=== PATIENT | male | born 1980 | race Caucasian/White ===

== ENCOUNTER 2021-12-22 20:21 | Inpatient (IN) | payer MEDICAID ==
[~2021-12-22] VITALS: Ht 177.8 cm; Wt 81.2 kg
[2021-12-23] MEDS ORDERED: VANCOMYCIN 1G PREMIX 200 ML IV SCH (01:00)
[2021-12-23] MEDS ORDERED: PIPERACILLIN/TAZ 3.375G PREMIX 50 ML IV ONE (01:00)
[2021-12-23 01:01] LABS: MEAN CORPUSCULAR HEMOGLOBIN 28.3 pg (28.0-32.0); MEAN CORPUSCULAR VOLUME 84.7 fL (80.0-94.0); MEAN PLATELET VOLUME 7.2 fl (7.4-10.4); PLATELET 564 x1000/uL (130-400); RED CELL DISTRIBUTION WIDTH 13.7 % (11.6-14.6)
[2021-12-23 01:08] LABS: CHLORIDE 106 mEq/L (98-107)
[2021-12-23 02:42] LABS: PLATELET ESTIMATE INCREASED
[2021-12-23] MEDS ORDERED: SODIUM CHLORIDE 0.9% 1,000 ML IV ONE (03:00)
[2021-12-23 09:36] LABS: HEMATOCRIT. 36.8 % (42.0-52.0); HEMOGLOBIN. 12.4 g/dL (14.0-18.0); MEAN CORPUSCULAR HEMOGLOBIN 28.4 pg (28.0-32.0); MEAN CORPUSCULAR VOLUME 84.2 fL (80.0-94.0); MEAN PLATELET VOLUME 6.8 fl (7.4-10.4); PLATELET 507 x1000/uL (130-400); RED BLOOD CELL COUNT 4.38 mill/uL (4.7-6.1); RED CELL DISTRIBUTION WIDTH 13.9 % (11.6-14.6)
[2021-12-23] MEDS ORDERED: NALOXONE HCL 0.4MG/ML VIAL IV PRN (09:45)
[2021-12-23 09:49] LABS: CHLORIDE 105 mEq/L (98-107)
[2021-12-23] MEDS: LORAZEPAM 2MG/ML CPJ IV PRN ×4 (10:15→22:05)
[2021-12-23] MEDS: VANCOMYCIN 1.25GM PMX (XELLIA) 250 ML IV SCH ×2 (10:55→17:04)
[2021-12-23 11:22] LABS: PLATELET ESTIMATE INCREAS
[2021-12-23] MEDS ORDERED: AMOX-424 MT (12:31)
[2021-12-23] MEDS: AMPICILLIN SOD/SULBACTAM NA 3 G in SODIUM CHLORIDE 0.9% 100 ML IV SCH ×2 (15:23→22:55)
[2021-12-23] MEDS: MORPHINE SULFATE 10MG/5ML ORAL SOLN UDC PO PRN (15:30)
[2021-12-23] MEDS ORDERED: HYDROCODONE/ACETAMINOPHEN 10/325MG TABLET PO PRN (16:30)
[2021-12-23] MEDS: GABAPENTIN 100MG CAPSULE PO SCH (17:00)
[2021-12-23 20:30] VITALS: BP 104/65
[2021-12-23 21:30] VITALS: BP 104/65
[2021-12-23 23:54] VITALS: BP 107/59
[2021-12-24] MEDS: MORPHINE SULFATE 10MG/5ML ORAL SOLN UDC PO PRN (00:01)
[2021-12-24] MEDS: GABAPENTIN 100MG CAPSULE PO SCH ×2 (00:27→09:09)
[2021-12-24] MEDS: VANCOMYCIN 1.25GM PMX (XELLIA) 250 ML IV SCH (01:28)
[2021-12-24] MEDS: AMPICILLIN SOD/SULBACTAM NA 3 G in SODIUM CHLORIDE 0.9% 100 ML IV SCH (03:58)
[2021-12-24 04:00] VITALS: BP 134/71
[2021-12-24] MEDS: LORAZEPAM 2MG/ML CPJ IV PRN (04:17)
[2021-12-24 08:00] VITALS: BP 110/70
[2021-12-24] MEDS ORDERED: VANCOMYCIN 1G PREMIX 200 ML IV SCH (11:00)
== END 2021-12-24 09:15 | disposition left against medical advice (07) | DRG 720 ==
LOC: ER 20:21 → 8WST 12-23 02:54 → ENRESERV 12-23 19:29
PROVIDERS: ADMIT Family Medicine; ATTEND Family Medicine
DX: A41.9 Sepsis, unspecified organism (principal); E44.0 Moderate protein-calorie malnutrition; E87.2 Acidosis; L03.113 Cellulitis of right upper limb; D75.839 Thrombocytosis, unspecified; F15.10 Other stimulant abuse, uncomplicated; F16.10 Hallucinogen abuse, uncomplicated; F12.10 Cannabis abuse, uncomplicated; L02.413 Cutaneous abscess of right upper limb; Z68.25 Body mass index [BMI] 25.0-25.9, adult
CPT/HCPCS: 36415; 80053; 80202; 83605; 84145; 85025; 99285; G0378; J0295; J2060; J2543; J3370; J7050